=== PATIENT | male | born 1985 | race Caucasian/White ===

== ENCOUNTER 2023-03-20 01:48 | Emergency (ER) | payer SELFPAY ==
[~2023-03-20] VITALS: Ht 162.6 cm; Wt 61.0 kg
[2023-03-20 01:59] VITALS: TEMP 97.8; O2SAT 98
[2023-03-20 02:30] VITALS: BP 121/74; PULSE 79; RESP 16
== END 2023-03-20 02:32 ==
LOC: ER 01:48
DX: Z00.00 Encounter for general adult medical examination without abnormal findings (principal)
CPT/HCPCS: 99283